=== PATIENT | female | born 1955 | race Caucasian/White ===

== ENCOUNTER 2019-12-23 07:57 | Outpatient (CLI) | payer OTHER, SELFPAY ==
--- NOTE | ~2019-12-23 | XR_ITS ---
EXAMINATION: XR knee RT 2V DATE: 12/23/2019 08:29 INDICATION: Right knee pain TECHNIQUE: Two views of the right knee were obtained. COMPARISON: None. FINDINGS: Alignment is normal. No fracture or osteochondral lesion. There is moderate tricompartmenta l osteoarthritis characterized by marginal osteophytes. No joint effusion/synovitis. Soft tissues ar e unremarkable. IMPRESSION: 1. No acute osseous abnormality. Reviewed, dictated and finalized at location A.
--- NOTE | ~2019-12-23 | XR_ITS ---
EXAMINATION: XR knee LT 2V DATE: 12/23/2019 08:29 INDICATION: Left knee pain TECHNIQUE: Two views of the left knee were obtained. COMPARISON: None. FINDINGS: Alignment is normal. No fracture or osteochondral lesion. There is mild tricompartmental os teoarthritis characterized by tiny marginal osteophytes. No joint effusion/synovitis. Soft tissues a re unremarkable. IMPRESSION: 1. No acute osseous abnormality. Reviewed, dictated and finalized at location A.
== END 2019-12-23 07:58 | disposition home or self-care (01) ==
PROVIDERS: PCP Family Medicine; Visit Provider Family Medicine
DX: M25.562 Pain in left knee (principal); M25.561 Pain in right knee
CPT/HCPCS: 73560

== ENCOUNTER 2020-07-14 12:07 | Outpatient (CLI) | payer OTHER, SELFPAY ==
--- NOTE | ~2020-07-14 | XR_ITS ---
EXAMINATION: XR abdomen obstructive series DATE: 07/14/2020 12:28 INDICATION: Unspecified abdominal pain. Constipation. TECHNIQUE: Upright and supine views of the abdomen on 3 radiographs were obtained. COMPARISON: Abdomen radiograph 03/04/2014 FINDINGS: There are no dilated loops of bowel. There is a small volume of stool in the colon. No free intraperitoneal gas. Breast implants are noted. IMPRESSION: 1. Normal bowel gas pattern. Reviewed, dictated and finalized at location A. H TRIMMER MOLD
== END 2020-07-14 12:08 | disposition home or self-care (01) ==
PROVIDERS: PCP Family Medicine; Visit Provider Family Medicine
DX: R10.9 Unspecified abdominal pain (principal)
CPT/HCPCS: 74019

== ENCOUNTER 2020-08-11 10:01 | Outpatient (CLI) | payer OTHER, SELFPAY ==
[2020-08-11 10:30] LABS: Eosinophils Absolute Auto 0.1 K/mm3 (0-0.3); Eosinophils Percent Auto 1.8 % (0-4.4); Hematocrit 38.4 % (37.0-47.0); Hemoglobin 13.1 g/dL (12.0-15.0); Immature Granulocyte Absolute 0.01 K/mm3 (0.00-0.031); Immature Granulocyte Percent A 0.3 % (0-0.5); Lymphocytes Absolute Auto 1.41 K/mm3 (0.9-3.2); Lymphocytes Percent Auto 36.3 % (18.3-44.2); Mean Corpuscular HGB Conc 34.1 g/dl (32-36); Mean Corpuscular Hemoglobin 33.1 pg (26-34); Mean Platelet Volume 9.8 fl (7.4-10.4); Monocytes Absolute Auto 0.3 K/mm3 (0.1-0.6); Monocytes Percent Auto 8.2 % (2.6-8.5); Neutrophils Percent Auto 52.4 % (45.5-73.1); Platelet Count Result 253 k/mm3 (150-375); Red Blood Count 3.96 M/mm3 (4.2-5.4); Red Cell Distribution Width 12.3 % (11.5-14.5); White Blood Count 3.9 K/mm3 (4.5-10.0)
[2020-08-11 10:43] LABS: Alanine Aminotransferase 14 U/L (4-35); Albumin Level 4.2 g/dL (3.5-5.1); Alkaline Phosphatase 57 U/L (38-126); Anion Gap 4 mmol/L (8-16); Aspartate Amino Transferase 28 U/L (14-36); Bilirubin,Total 0.4 mg/dL (0.2-1.3); Blood Urea Nitrogen 19 mg/dL (7-17); Calcium 9.4 mg/dL (8.4-10.2); Carbon Dioxide 30 mmol/L (22-30); Chloride 107 mmol/L (98-107); Cholesterol 214 mg/dL (0-200); Estimated Glomerular Filt Rate > 60; Glucose 98 mg/dL (65-105); HDL Direct 65 mg/dL; Potassium 4.2 mmol/L (3.4-5.0); Sodium 141 mmol/L (137-145); Triglycerides 205 mg/dL (<150)
[2020-08-11 10:54] LABS: LDL Cholesterol Direct 105 mg/dL
[2020-08-15 11:15] LABS: Vitamin D 1,25 (OH)2 Total 48 pg/mL (18-72); Vitamin D2 1,25 (OH)2 <8 pg/mL; Vitamin D3 1,25 (OH)2 48 pg/mL
== END 2020-08-11 10:02 | disposition home or self-care (01) ==
LOC: ANHLAB 10:03
PROVIDERS: PCP Family Medicine; Visit Provider Family Medicine
DX: E55.9 Vitamin D deficiency, unspecified (principal); I10 Essential (primary) hypertension; E78.2 Mixed hyperlipidemia
CPT/HCPCS: 36415; 80053; 80061; 82652; 85025

== ENCOUNTER → 2021-04-11 10:39 | Outpatient (CLI) | payer MEDICARE, OTHER, SELFPAY ==
--- NOTE | ~2021-04-11 | MM_ITS ---
EXAMINATION: MM scrn april implant BI w pool HISTORY: Screening mammogram TECHNIQUE: Craniocaudal and mediolateral oblique 3-D tomosynthesis images with implant displacement a nd synthetic 2-D images were generated. Craniocaudal and mediolateral oblique views of the breasts wi thout implant displacement were obtained using full field digital mammography. CAD analysis was submi tted and interpreted. COMPARISON: Comparison to multiple prior studies sequentially, with oldest reviewed study dated 05/08. BREAST PARENCHYMAL COMPOSITION: There are scattered areas of fibroglandular density. FINDINGS: There is no evidence of suspicious mass, calcification, or architectural distortion to sugg est malignancy in either breast. There has been no suspicious interval change. IMPRESSION: 1. No mammographic evidence of malignancy. 2. Recommend routine screening mammography in one year. BI-RADS Category 1: Negative Reviewed, dictated and finalized at location A.
== END ==
PROVIDERS: PCP Family Medicine; Visit Provider Family Medicine
DX: Z12.31 Encounter for screening mammogram for malignant neoplasm of breast (principal)
CPT/HCPCS: 77063; 77067

== ENCOUNTER → 2021-05-03 03:07 | Outpatient (CLI) | payer MEDICARE, OTHER, SELFPAY ==
[2021-05-03 20:01] LABS: SARS-CoV-2 RNA PCR Negative
== END ==
PROVIDERS: PCP Family Medicine; Visit Provider Family Medicine
DX: R68.89 Other general symptoms and signs (principal); Z20.822 Contact with and (suspected) exposure to COVID-19
CPT/HCPCS: C9803; U0003; U0005

== ENCOUNTER 2022-05-02 00:22 | Day surgery (SDC) | payer MEDICARE, OTHER, SELFPAY ==
[2022-05-01 13:02] VITALS: BMI 23.9
[2022-05-02 08:00] VITALS: BMI 23.4
[2022-05-02 08:05] LABS: Basophils Absolute Auto 0.1 K/mm3 (0.0-0.1); Basophils Percent Auto 1.1 % (0.2-1.2); Eosinophils Absolute Auto 0.1 K/mm3 (0-0.3); Eosinophils Percent Auto 2.1 % (0-4.4); Hematocrit 37.9 % (37.0-47.0); Hemoglobin 12.7 g/dL (12.0-15.0); Lymphocytes Absolute Auto 1.49 K/mm3 (0.9-3.2); Lymphocytes Percent Auto 34.2 % (18.3-44.2); Mean Corpuscular HGB Conc 33.5 g/dl (32-36); Mean Corpuscular Hemoglobin 32.8 pg (26-34); Mean Corpuscular Volume 97.9 fl (80-100); Mean Platelet Volume 9.7 fl (7.4-10.4); Monocytes Absolute Auto 0.5 K/mm3 (0.1-0.6); Monocytes Percent Auto 10.8 % (2.6-8.5); Neutrophils Absolute Auto 2.3 K/mm3 (1.3-6.7); Neutrophils Percent Auto 51.8 % (45.5-73.1); Platelet Count Result 239 k/mm3 (150-375); Red Blood Count 3.87 M/mm3 (4.2-5.4); Red Cell Distribution Width 12.4 % (11.5-14.5); White Blood Count 4.4 K/mm3 (4.5-10.0)
[2022-05-02 08:16] LABS: Anion Gap 9 mmol/L (8-16); Blood Urea Nitrogen 20 mg/dL (7-17); Calcium 9.3 mg/dL (8.4-10.2); Carbon Dioxide 28 mmol/L (22-30); Chloride 104 mmol/L (98-107); Estimated CRCL calculation 62 ml/min; Estimated Glomerular Filt Rate > 60; Glucose 96 mg/dL (65-110); Potassium 4.1 mmol/L (3.4-5.0); Sodium 141 mmol/L (137-145)
[2022-05-02 08:19] VITALS: BP 150/74; PULSE 60; RESP 18; TEMP 36.6; O2SAT 98
[2022-05-02 08:23] LABS: Prothrombin Time 12.5 Seconds (11.1-14.7)
[2022-05-02] MEDS: SODIUM CHLORIDE 0.9% IV 500 ML 100 ML IV CONT (08:30)
--- NOTE | 2022-05-02 09:31 | WPDHPUPDATE1 ---
History and Physical Update Update Date/Time: 05/02/22 09:31 History and Physical has been reviewed, including an updated exam of the patient. There are NO changes in the patient's condition. Risks, benefits, and alternatives have been discussed and questions answered. Patient agrees to proceed with procedure.
--- NOTE | 2022-05-02 09:31 | WPDMODSED ---
Moderate Sedation Note-Pt Data Patient Data Diagnosis: abn stress test Procedure to be performed/Plan: Cardiac catheterization Allergies Allergy/AdvReac Type Severity Reaction Status Date / Time No Known Allergies Allergy Verified 05/02/22 07:54 Home Medications Medication Instructions Recorded Confirmed Type losartan 25 mg tablet See Rx Instructions .Route 02/01/22 05/02/22 Rx .COMPLEX #90 tabs rosuvastatin 10 mg tablet 10 mg PO DAILY #90 tabs 02/01/22 05/01/22 Rx fluoxetine 20 mg capsule See Rx Instructions .Route 03/04/22 05/01/22 Rx .COMPLEX #30 caps aspirin 81 mg tablet,delayed 81 mg PO DAILY 05/01/22 05/02/22 History release Current Medications: Active Medications Sodium Chloride (Normal Saline Iv) 500 mls @ 100 mls/hr IV CONT .Q5H FLAVIO Last Admin: 05/02/22 08:30 Dose: 100 mls/hr Sedation/Anesthesia: No previous sedation/anesthesia problems (including family history). [facility] Past Medical History Medical History HTN (hypertension) Mixed hyperlipidemia Family History Family History Mother Hypertension Cerebrovascular accident, Onset Age: 68 Father Cerebrovascular accident, Onset Age: 56 Patient's father is Social History Social History Social History: Single Years smoked: 8 Smoking status: Former smoker Tobacco type: cigarettes Second hand tobacco smoke exposure: No Smoking end date: 09/08/73 Alcohol intake: never Substance use: never Substance use type: does not use Living arrangements: with family Gender identity (if verbalized by the patient): Female Sexual Orientation (if Verbalized by the Patient): Straight or Heterosexual Spiritual care concerns: No Mod Sed Physical Exam Physical Exam Pre Procedural Exam: Normal: Appearance, Eyes, Ears, Nose, Neck, Throat, Airway, Lungs, Heart Size, Heart Rate, Heart Rhythm, Neuro Exam, Abdomen, Liver, Kidneys, Spleen, Breasts, Genitalia, Extremities and Skin Hours since solid foods: 8 Hours since liquid intake: 8 Mallampati Classification: class 1 Internal Medicine - PN: Obj Da Vital Signs Vital Signs: Vital Signs - 24 hr 05/02/22 08:19 Temperature 36.6 C Pulse Rate 60 Respiratory Rate 18 Blood Pressure 150/74 H Pulse Oximetry 98 Oxygen Delivery Room Air Meds/Results Medications: Active Medications Generic Name Dose Route Start Last Admin Trade Name Hieu PRN Reason Stop Dose Admin Sodium Chloride 500 mls @ 100 mls/hr 05/02/22 07:30 05/02/22 08:30 Normal Saline Iv IV CONT 100 mls/hr .Q5H FLAVIO Administration Labs CBC & Chem 7: 05/02/22 07:52 05/02/22 07:52 Labs: Laboratory Results - last 24 hr 05/02/22 05/02/22 05/02/22 07:52 07:52 07:52 WBC 4.4 L RBC 3.87 L Hgb 12.7 Hct 37.9 MCV 97.9 MCH 32.8 MCHC 33.5 RDW 12.4 Plt Count 239 MPV 9.7 Immature Gran % (Auto) 0.0 Neut % (Auto) 51.8 Lymph % (Auto) 34.2 Pine % (Auto) 10.8 H Eos % (Auto) 2.1 Baso % (Auto) 1.1 Lymph # (Auto) 1.49 Pine # (Auto) 0.5 Eos # (Auto) 0.1 Baso # (Auto) 0.1 Abs Immat Gran (auto) 0.00 Absolute Neuts (auto) 2.3 Absolute Nucleated RBC 0.0 Nucleated RBC % 0.0 PT 12.5 INR 1.0 Sodium 141 Potassium 4.1 Chloride 104 Carbon Dioxide 28 Anion Gap 9 BUN 20 H Creatinine 0.70 Estim Creat Clear Calc 62 Estimated GFR > 60 Glucose 96 Calcium 9.3 ASA Classification/Sedation ASA Classification/Sedation ASA Class: I Emergent: No Risks: Risks, benefits and alternatives explained and patient/family accepted plan for sedation. Patient re-evaluated immediately prior to sedation.
--- NOTE | 2022-05-02 09:32 | WPDCARDPROC ---
Cardiac Cath Procedure Note Date of procedure:: 05/02/22 Performing physician:: Nick Armstrong MD Indication:: abnormal stress test Brief clinical history:: this 66-year-old female with history of hypertension with strong family history of coronary artery disease, underwent stress testing that shows fixed infarction in the anterior wall. Procedure Procedure performed:: 1-Moderate sedation that started at 9:44 a.m.and ended at 10:00 a.m. total duration 16 minutes using 2mg of Versed and 50mcg fentanyl. The registered nurse was dodie donaldson. 2-Selective left and right coronary angiogram. 3-Left heart catheterization with measurement of LVEDP and measurement of gradient across aortic valve. 4-Right common femoral arterial angiogram. 5-Deployment of 6 Malaysian Angio-Seal. Sedation/Medication given:: Moderate sedation. Access site:: Right common femoral artery. Estimated blood loss:: 10cc Procedure note:: After informed consent patient was brought in to packing house laborer with the was draped and prepped in usual manner. Moderate sedation was given and the right groin was infiltrated using 1% lidocaine. Five Malaysian sheath was obtained using micropuncture needle and the modified Seldinger technique. Selective left coronary angiogram was done using JL4 catheter with the tip of the catheter placed in the left main coronary artery. Selective right coronary angiogram was done using JR4 catheter with the tip of the catheter placed to the right coronary artery. After that 5 Malaysian pigtail catheter was advanced across the aortic valve into the left ventricle with measurement of LVEDP and measurement of gradient across aortic valve. Right common femoral arterial angiogram was done. Findings:: 1- left coronary artery is a large artery that divides into large LAD, large circumflex artery and large ramus intermedius. Left main is free of disease 2- left anterior descending artery is a large artery that runs and wraps around the apex. free of disease. In the mid segment there are 2 diagonal branches that sure same origin, 1 of them is small in size and the other 1 is medium in size without significant disease. 3- leftcircumflex artery is a large artery And dominant and free of disease. 4- Ramus intermedius is a large artery and free of disease. 4- right coronary artery is Small and non dominant and free disease. 5- LVEDP was 8 mm Hgand no gradient across aortic valve. 6- opening arterial pressure was and closing pressure was 7- right femoral artery angiogram shows no significant disease in the right common femoral artery. Conclusion:: - no CAD - false-positive stress test Assessment and Plan Assessment and plan (1) Abnormal stress test: Code(s): R94.39 - Abnormal result of other cardiovascular function study Status: Acute Plan - continue risk factor modification for CAD
[2022-05-02 10:15] VITALS: BP 141/70; PULSE 50; RESP 22; O2SAT 98
[2022-05-02 10:45] VITALS: BP 148/61; PULSE 55; RESP 12; O2SAT 98
[2022-05-02 11:00] VITALS: BP 122/62; PULSE 74; RESP 13; O2SAT 98
[2022-05-02 11:31] VITALS: BP 130/67; PULSE 47; RESP 14; O2SAT 98
[2022-05-02 12:00] VITALS: BP 136/64; PULSE 51; RESP 14; O2SAT 98
== END 2022-05-02 13:03 | disposition home or self-care (01) ==
PROVIDERS: PCP Family Medicine; Visit Provider Internal Medicine Cardiovascular Disease
PROC: 4A023N7 Measurement of Cardiac Sampling and Pressure, Left Heart, Percutaneous Approach (ICD-10-PCS; CPT 93452; principal; 2022-05-02 09:00)
DX: R94.39 Abnormal result of other cardiovascular function study (principal); Z82.49 Family history of ischemic heart disease and other diseases of the circulatory system; I10 Essential (primary) hypertension; E78.2 Mixed hyperlipidemia; Z87.891 Personal history of nicotine dependence; R06.09 Other forms of dyspnea; Z79.82 Long term (current) use of aspirin
CPT/HCPCS: 36415; 80048; 85025; 85610; 93458; A9270; C1760; C1887; C1894; G0269; J1644; J2250; J3010; J7030; J7040

== ENCOUNTER → 2023-08-27 13:09 | Outpatient (CLI) | payer MEDICARE, OTHER, SELFPAY ==
--- NOTE | ~2023-08-27 | CT_ITS ---
EXAMINATION: CT abdomen pelvis wo con DATE: 08/27/2023 13:25 INDICATION: Constipation TECHNIQUE: Computed tomography (CT) of the abdomen and pelvis was performed without intravenous contr ast. The dose-length product (DLP) was 413.02 mGy-cm. Automated exposure control and iterative recons truction technique were employed. COMPARISON: None FINDINGS: Minimal dependent atelectasis is present in the lung bases. The heart size is normal. Bilat eral breast implants are noted. The liver, spleen, pancreas, gallbladder, and adrenal glands are norm al. The right kidney is unremarkable. There is a 1.7 cm exophytic cyst of the left kidney. No patholo gically enlarged abdominal or pelvic lymph nodes are identified. No free intraperitoneal gas or evide nce of bowel obstruction. There are bilateral L5 pars defects with grade 1 anterolisthesis of L5 on S 1 and severe loss of intervertebral disc space height. IMPRESSION: 1. No CT correlate for the patient's symptoms. Reviewed, dictated and finalized at location B. AL COORDINATOR
== END ==
PROVIDERS: PCP Physician Assistant; Visit Provider Physician Assistant
DX: R10.9 Unspecified abdominal pain (principal); K59.00 Constipation, unspecified
CPT/HCPCS: 74176

== ENCOUNTER 2023-11-05 00:19 | Day surgery (SDC) | payer MEDICARE, OTHER, SELFPAY ==
[2023-10-14 11:07] VITALS: BMI 23.1
--- NOTE | 2023-11-03 10:34 | PC.NURSE ---
Patient called regarding upcoming procedure. Reviewed preop instructions, appointment times, and procedure prep.
--- NOTE | 2023-11-04 13:08 | PM.HPGS ---
History of Present Illness History of Present Illness Consent: Risks, benefits, and alternatives have been discussed and questions answered. Patient agrees to proceed with procedure. Chief complaint: IBS-c, Right Lower Quad Pain Narrative: Stephanie Wells is a 68 year old female here for abdominal cramping, constipation and blood in her stools.? Review of Systems Review of Systems: All systems reviewed & are unremarkable except as noted in HPI and below PMFSH Past Medical History Medical History Bright red blood per rectum Bronchitis Bronchospasm Bunion of great toe of right foot Carrier of Streptococcus Chronic constipation Cough Essential (primary) hypertension H/O cardiovascular stress test HTN (hypertension) Irritable bowel syndrome with constipation Major depressive disorder, recurrent, moderate Mixed hyperlipidemia Other neutropenia Postmenopausal RLQ discomfort Sacroiliac inflammation Strep throat Vitamin D deficiency Family History Family History Mother Hypertension Cerebrovascular accident, Onset Age: 68 Father Cerebrovascular accident, Onset Age: 56 Patient's father is Sibling Breast cancer Social History Social History Social History: Single Smoking packs per day: 1 Smoking cigarettes per day: 20.0 Years smoked: 8 Smoking pack-years: 8.00 Smoking status: Former smoker Tobacco type: cigarettes Second hand tobacco smoke exposure: No Smoking end date: 09/08/73 Alcohol intake: never Substance use: never Substance use type: does not use Lack of Transportation: No Lack of Food: Never True Current Housing: I Have Housing Concerned About Future Housing: No Difficulty Paying Gas/Electric Bills: No Difficulty Paying for Meds: No Currently Unemployed: YES Education: Associate Degree Difficulty w/ Childcare or Family Care: No Living arrangements: with family Occupation/Education: retired Gender identity (if verbalized by the patient): Female Sexual Orientation (if Verbalized by the Patient): Straight or Heterosexual Spiritual care concerns: No Meds Home Medications and Allergies Home Medications Medication Instructions Recorded Confirmed Type cholecalciferol (vitamin D3) 50 50 mcg PO DAILY 06/28/22 11/05/23 History mcg (2,000 unit) capsule losartan 25 mg tablet See Rx Instructions .Route 09/20/22 11/05/23 Rx .COMPLEX #90 tabs rosuvastatin 10 mg tablet 10 mg PO DAILY #90 tabs 08/14/23 11/05/23 Rx fluoxetine 20 mg capsule See Rx Instructions .Route 09/17/23 11/05/23 Rx .COMPLEX #100 caps polyethylene glycol 3350 17 17 g PO DAILY 10/14/23 11/05/23 History gram/dose oral powder (Miralax) psyllium husk 0.4 gram capsule 0.4 g PO DAILY 10/14/23 11/05/23 History (Daily Fiber) Allergies Allergy/AdvReac Type Severity Reaction Status Date / Time No Known Allergies Allergy Verified 11/05/23 07:57 Exam Resp: Auscultation: clear to auscultation bilaterally Cardio: Rate: regular rate Rhythm: regular rhythm GI: GI Palp: Yes Soft to palpation and No Tenderness to palpation present (GI) Assessment and Plan Assessment and plan (1) Chronic constipation: Code(s): K59.09 - Other constipation Status: Acute Assessment and Plan: Colonoscopy with possible biopsy or polypectomy or cautery or injection of substances.
[2023-11-05 07:59] VITALS: BP 127/54; PULSE 80; RESP 16; TEMP 36.2; O2SAT 99
[2023-11-05] MEDS: LACTATED RINGERS 1,000 ML 150 ML IV CONT (08:11)
--- NOTE | 2023-11-05 08:15 | WPDANESEPPF ---
Anes - Initial Pre Proc Eval Procedure: Operation Date: 11/05/23 09:00 Proposed Procedures p Colonoscopy - Eliazar Juarez MD Date/Time: 11/05/23 08:15 Surgeon: Eliazar Juarez MD Pre Op Diagnosis: IBS-c, Right Lower Quad Pain Patient Data Age: 68 Gender: F Height: 1.68 m Weight: 64 kg Last Vital Signs Temp 36.2 C L 11/05/23 07:59 Pulse 80 11/05/23 07:59 Resp 16 11/05/23 07:59 BP 127/54 L 11/05/23 07:59 Pulse Ox 99 11/05/23 07:59 O2 Del Method Room Air 11/05/23 07:59 Allergies Allergy/AdvReac Type Severity Reaction Status Date / Time No Known Allergies Allergy Verified 11/05/23 07:57 Home Medications Medication Instructions Recorded Confirmed Type cholecalciferol (vitamin D3) 50 50 mcg PO DAILY 06/28/22 11/05/23 History mcg (2,000 unit) capsule losartan 25 mg tablet See Rx Instructions .Route 09/20/22 11/05/23 Rx .COMPLEX #90 tabs rosuvastatin 10 mg tablet 10 mg PO DAILY #90 tabs 08/14/23 11/05/23 Rx fluoxetine 20 mg capsule See Rx Instructions .Route 09/17/23 11/05/23 Rx .COMPLEX #100 caps polyethylene glycol 3350 17 17 g PO DAILY 10/14/23 11/05/23 History gram/dose oral powder (Miralax) psyllium husk 0.4 gram capsule 0.4 g PO DAILY 10/14/23 11/05/23 History (Daily Fiber) Patient hx anesthesia problems: none Family hx anesthesia problems: none Results Review: All pre-operative results and documents have been reviewed as part of the pre-operative evaluation. [facility] Past Medical History Medical History Bright red blood per rectum Bronchitis Bronchospasm Bunion of great toe of right foot Carrier of Streptococcus Chronic constipation Cough Essential (primary) hypertension H/O cardiovascular stress test HTN (hypertension) Irritable bowel syndrome with constipation Major depressive disorder, recurrent, moderate Mixed hyperlipidemia Other neutropenia Postmenopausal RLQ discomfort Sacroiliac inflammation Strep throat Vitamin D deficiency Family History Family History Mother Hypertension Cerebrovascular accident, Onset Age: 68 Father Cerebrovascular accident, Onset Age: 56 Patient's father is Sibling Breast cancer Social History Social History Social History: Single Smoking packs per day: 1 Smoking cigarettes per day: 20.0 Years smoked: 8 Smoking pack-years: 8.00 Smoking status: Former smoker Tobacco type: cigarettes Second hand tobacco smoke exposure: No Smoking end date: 09/08/73 Alcohol intake: never Substance use: never Substance use type: does not use Lack of Transportation: No Lack of Food: Never True Current Housing: I Have Housing Concerned About Future Housing: No Difficulty Paying Gas/Electric Bills: No Difficulty Paying for Meds: No Currently Unemployed: YES Education: Associate Degree Difficulty w/ Childcare or Family Care: No Living arrangements: with family Occupation/Education: retired Gender identity (if verbalized by the patient): Female Sexual Orientation (if Verbalized by the Patient): Straight or Heterosexual Spiritual care concerns: No Anes - Eval Final PreProcedure Day of Procedure 11/05/23 08:15 Patient weight: normal Heart: regular rate and rhythm Lungs: clear to auscultation Airway: Mallampati scale class II Neurological: alert and oriented Last oral intake: >/= 8 hours ASA classification: II Emergent: no Anesthetic plan: proceed Anesthesia type and monitoring: general GIVS and standard monitoring Results Review: All pre-operative results and documents have been reviewed as part of the pre-operative evaluation. Informed Consent: The patient's anesthetic plan and its attendant risks and benefits were discussed with the patient/family/POA. Questions were solicit
[2023-11-05 09:09] VITALS: BP 110/54; PULSE 61; RESP 19; O2SAT 98
[2023-11-05 09:19] VITALS: BP 117/73; PULSE 64; RESP 18; O2SAT 99
[2023-11-05 09:29] VITALS: BP 104/67; PULSE 57; RESP 18; O2SAT 98
== END 2023-11-05 09:40 | disposition home or self-care (01) ==
PROVIDERS: PCP Family Medicine; Visit Provider Internal Medicine Gastroenterology
PROC: 0DJD8ZZ Inspection of Lower Intestinal Tract, Via Natural or Artificial Opening Endoscopic (ICD-10-PCS; CPT 45378; principal; 2023-11-05 09:00)
DX: K63.5 Polyp of colon (principal); K64.8 Other hemorrhoids; K58.1 Irritable bowel syndrome with constipation; I10 Essential (primary) hypertension; E78.2 Mixed hyperlipidemia; E55.9 Vitamin D deficiency, unspecified; F33.1 Major depressive disorder, recurrent, moderate; Z87.891 Personal history of nicotine dependence
CPT/HCPCS: 45385; 88305; J1596; J2704; J7120

== ENCOUNTER 2024-08-20 11:47 | Outpatient (CLI) | payer MEDICARE, OTHER, SELFPAY ==
--- NOTE | ~2024-08-20 | CT_ITS ---
Non-contrast Head CT History: Headache Technique: Axial non-contrast imaging of the brain was performed. Dose reduction technique was used on this scan by utilizing automated exposure control and iterative reconstruction technique. The dose -length product (DLP) was 599.57 mGy-cm. Findings: There is no evidence of intracranial hemorrhage, mass lesion, or acute infarct. Brain par enchyma appears normal. The ventricles and subarachnoid spaces are normal in size. The calvarium ap pears normal. The visualized paranasal sinuses and mastoid air cells are clear, aside from small ret ention cyst or polyp in the left maxillary sinus. Impression: No significant abnormality seen. Reviewed, dictated and finalized at location . S MANAGER Impression: No significant abnormality seen.
== END 2024-08-20 11:48 | disposition home or self-care (01) ==
LOC: MICIMG 11:49
PROVIDERS: PCP Family Medicine; Visit Provider Student in an Organized Health Care Education/Training Program
DX: R51.9 Headache, unspecified (principal)
CPT/HCPCS: 70450

== ENCOUNTER 2025-07-04 15:13 | Outpatient (CLI) | payer MEDICARE, OTHER, SELFPAY ==
--- NOTE | ~2025-07-04 | MM_ITS ---
EXAMINATION: MM scrn april implant BI w pool HISTORY: Screening mammogram TECHNIQUE: Craniocaudal and mediolateral oblique 3-D tomosynthesis images with implant displacement and synthetic 2-D images were generated. Craniocaudal and mediolateral oblique views of the breasts without implant displacement were obtained using full field digital mammography. CAD analysis was submitted and interpreted. COMPARISON: Comparison to multiple prior studies sequentially, with oldest reviewed study dated 04/01/2018. BREAST PARENCHYMAL COMPOSITION: Not dense: There are scattered areas of fibroglandular density. FINDINGS: There is no evidence of suspicious mass, calcification, or architectural distortion to suggest malignancy in either breast. There has been no suspicious interval change. IMPRESSION: 1. No mammographic evidence of malignancy. 2. Recommend routine screening mammography in one year. BI-RADS Category 1: Negative Reviewed, dictated and finalized at location B.
== END 2025-07-04 15:14 | disposition home or self-care (01) ==
LOC: CHSIMG 15:15
PROVIDERS: PCP Family Medicine; Visit Provider Family Medicine
DX: Z12.31 Encounter for screening mammogram for malignant neoplasm of breast (principal); Z98.82 Breast implant status
CPT/HCPCS: 77063; 77067